=== PATIENT | male | born 1965 | race Caucasian/White ===

== ENCOUNTER 2016-04-17 08:55 | Emergency (ER) | payer OTHER ==
[~2016-04-17] VITALS: Ht 167.6 cm; Wt 84.8 kg
[~2016-04-17 08:55] MED LIST: BACTRIM DS TAB1 EACH PO; DILAUDID2 MG PO; FLEXERIL10 MG PO; INDOMETHACIN50 MG PO; KEFLEX500 M1 PO; MEDROL DOSEPAK1 PAC PO; MOTRIN600 MG PO; PERCOCET 325 MG1 TA2 PO; PREDNISONE10 MG; VALIUM2 MG PO; VICODIN5-300 PO
--- NOTE | 2016-04-17 09:21 | ED HAND/WRIST INJURY COMPLAINT ---
History of Present Illness General Chief Complaint: Hand or Wrist Injury Stated Complaint: FINGER LAC Source: patient Exam Limitations: no limitations Vital Signs & Intake/Output Vital Signs & Intake/Output Vital Signs Date Time Temp Pulse Resp B/P Pulse O2 O2 Flow FiO2 Ox Delivery Rate 04/17 1013 96 04/17 1005 99.0 88 139/74 04/17 0905 98.7 72 20 168/79 97 Room Air Allergies Coded Allergies: NO KNOWN ALLERGIES (04/17/16) Reconcile Medications Amoxicillin 500 MG TABLET 1 TAB PO TID cellulitis Hydrocodone/Acetaminophen (Ballico 5-325 Tablet) 5 MG-325 MG TABLET 1-2 TAB PO Q4-6 PRN PRN pain Sulfamethoxazole/Trimethoprim (Bactrim Ds Tablet) 800 MG-160 MG TABLET 1 TAB PO BID cellulitis Triage Note: TRIAGE: [facility] R/T LAC TO L THUMB S/P CUTTING SAME WITH RAZOR BLADE. REFERRED TO ER FOR ABX TREATMENT. Triage Nurses Notes Reviewed? yes Occurred: 3 DAYS Duration: day(s): (3) Timing: no prior history Injury Environment: home Severity: moderate Severity Numbers: 6 Pain/Injury Location: Left: Hand. Context: laceration Method of Injury: laceration Modifying Factors: Improves With: immobilization. Worsens With: movement. HPI: Patient is a 50-year-old male presenting to the emergency department with chief complaint of worsening swelling, pain and redness around the laceration and he had sutured 3 days ago. Patient reports that he was seen at occupational medicine on Sunday and had a laceration repaired. Since then his nose increased pain and swelling and redness to the area. He was seen again today at occupational medicine and told him to come to the emergency department for evaluation. Denies any fevers or chills. No nausea or vomiting. Pain is worse with movement. He reports that he feels very swollen that he cannot even move it. Denies taking anything at home to help with pain. Denies numbness or tingling. (AIDEE MINOR,BALJIT) Past History Travel History Traveled to [place] past 21 day No Medical History Any Pertinent Medical History? 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 No (BALJIT LOMELI) Review of Systems Review of Systems Constitutional: Reports: no symptoms. Comments Review of systems: See HPI, All other systems negative. Constitutional, no chills fever or weight loss HEENT: No visual changes no sore throat no congestion Cardiovascular: No chest pain Skin, no jaundice Respiratory: No dyspnea cough sputum or hemoptysis GI: No nausea no vomiting : No dysuria No hematuria Muscle skeletal: no back pain, no neck pain, Neurologic: No numbness no confusion Psych: No stress anxiety Immunology: No splenectomy or history of AIDS (BALJIT LOMELI) Physical Exam Physical Exam General Appearance: well developed/nourished, no apparent distress, alert, awake , comfortable Hand Left: swelling Hand Right: normal inspection, normal range of motion Comments: Well-developed well-nourished person in no acute distress HEENT: Pupils equally round and reactive to light and accommodation. Nose is atraumatic. Neck: Supple, no lymphadenopathy, normal range of motion without pain or tenderness Back: Nontender Cardiovascular: Regular rate and rhythms no murmurs rubs or gallops, normal JVP Respiratory: No respiratory distress. Extremity: Radial pulses are 2+ bilaterally. Tender to palpation over the left thumb where the sutures are. Limited range of motion of left thumb secondary to pain and swelling. Capillary refill is intact in upper extremities. Neuro: Alert oriented x3, motor sensory normal Skin: Sutures in place over the laceration on the left thumb. There is surrounding erythema and edema. No purulent discharge. Psych: Mood and affect is normal, memory and judgment is normal. (BALJIT LOMELI) Progress Differential Diagnosis: cellulitis, contusion, dislocation, fracture, sprain, necrotizing fasciitis Plan of Care: Orders Procedure Date/time Status XRY-FINGERS, LEFT 04/17 936 Active Current Medications Sig/Brady Start time Last Medication Dose Stop Time Status Admin Ampicillin Sodium/ 3,000 MG ONCE ONE 04/17 944 AC Sulbactam Sodium 04/17 1014 (Unasyn) Sodium Chloride 100 ML (Normal Saline 0.9%) Diagnostic Imaging: Viewed by Me: Radiology Read. Discussed w/RAD: Radiology Read. Radiology Impression: PATIENT: SAWYER MILLS PRESENT AGE: 50 PATIENT ACCOUNT NO: [id number] : 64 LOCATION: [facility] ORDERING PHYSICIAN: BALJIT MINOR SERVICE DATE: 04/17/16 EXAM TYPE: RAD - XRY-FINGERS, LEFT EXAMINATION: XR FINGER, LEFT CLINICAL INFORMATION: Left thumb pain and swelling status post sutures. Evaluate for subcutaneous tissue emphysema and osteomyelitis. COMPARISON: None TECHNIQUE: Three views of the left thumb were obtained. FINDINGS: Bones have normal density and alignment throughout the visualized wrist and hand. At the thumb interphalangeal joint, there is nonuniform, ejcq-[id number] joint space narrowing and osteophyte formation. No acute fracture or malalignment at the degenerated joint. There appears to be a small area of soft tissue emphysema lateral to the mid shaft of the proximal phalanx of the thumb. There is no radiopaque foreign body in this region. No evidence of phalangeal fracture, cortical erosion or periostitis. There is mild osteoarthrosis at multiple interphalangeal joints. IMPRESSION: 1. Small area of soft tissue emphysema is seen lateral to the proximal phalanx of the thumb. 2. No evidence of osteomyelitis. 3. 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 Comments: 2 sutures removed from laceration as it looks to be too tight. Dressing placed. Splint placed. 1 sutured removed. (AIDEE MINOR,BALJIT) Departure Departure Time of Disposition: 1112 Disposition: HOME OR SELF CARE Condition: Stable Clinical Impression Primary Impression: Cellulitis Referrals: YAMILKA ROSS,CAT BENSON MD,TERESA (PCP/Family) Additional Instructions: Follow-up with occupational medicine as scheduled. Also follow-up with Dr. San the hand specialist. Take antibiotics as prescribed. Keep area clean. Return for worsening symptoms or concerns. Wear splint for support. Departure Forms: Customer Survey General Discharge Information Prescriptions: Current Visit Scripts Amoxicillin 1 TAB PO TID #30 TAB Sulfamethoxazole/Trimethoprim (Bactrim Ds Tablet) 1 TAB PO BID #20 TAB Hydrocodone/Acetaminophen (Ballico 5-325 Tablet) 1-2 TAB PO Q4-6 PRN PRN pain #10 TAB (BALJIT LOMELI) PA/OFFICE EXECUTIVE Co-Sign Statement Statement: ED Attending supervision documentation- [X] I saw and evaluated the patient. I have also reviewed all the pertinent lab results and diagnostic results. I agree with the findings and the plan of care as documented in the PA's/OFFICE EXECUTIVE's documentation. [X] I have reviewed the ED Record and agree with the PA's/OFFICE EXECUTIVE's documentation. [] Additions or exceptions (if any) to the PAs/OFFICE EXECUTIVE's note and plan are summarized below: [] (CHANELLE ROSS,JASON) Procedures Splinting Location: left thumb Manual Alignment Performed: No Hand-Made Type: orthoglass Splint: thumb spica Splint Applied By: splint applied by me Pre-Proc Neuro Vasc Exam: normal Post-Proc Neuro Vasc Exam: normal Progress: Patient tolerated procedure well. (BALJIT LOMELI)
[2016-04-17 10:05] VITALS: BP 139/74
--- NOTE | 2016-04-17 10:11 | RADIOLOGY REPORT ---
EXAMINATION: XR FINGER, LEFT CLINICAL INFORMATION: Left thumb pain and swelling status post sutures. Evaluate for subcutaneous tissue emphysema and osteomyelitis. COMPARISON: None TECHNIQUE: Three views of the left thumb were obtained. FINDINGS: Bones have normal density and alignment throughout the visualized wrist and hand. At the thumb interphalangeal joint, there is nonuniform, [id number]-[id number] joint space narrowing and osteophyte formation. No acute fracture or malalignment at the degenerated joint. There appears to be a small area of soft tissue emphysema lateral to the mid shaft of the proximal phalanx of the thumb. There is no radiopaque foreign body in this region. No evidence of phalangeal fracture, cortical erosion or periostitis. There is mild osteoarthrosis at multiple interphalangeal joints. IMPRESSION: 1. Small area of soft tissue emphysema is seen lateral to the proximal phalanx of the thumb. 2. No evidence of osteomyelitis. 3. 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
[2016-04-17] MEDS ORDERED: BACTRIM DS TAB1 EACH PO (11:26)
[2016-04-17] MEDS ORDERED: VICODIN 5-3001 EACH PO (11:26)
[2016-04-17] MEDS ORDERED: AMOXICILLIN500 M3 PO (11:26)
[2016-04-17] MEDS ORDERED: NORCO 5-325 TA1 EACH PO (11:28)
== END 2016-04-17 12:16 ==
LOC: ERH 08:55
DX: L03.012 Cellulitis of left finger (principal)
CPT/HCPCS: 73140-LT; 96374; 96375; J1885

== ENCOUNTER 2016-08-14 20:11 | Emergency (ER) | payer OTHER ==
[~2016-08-14] VITALS: Ht 162.6 cm; Wt 84.8 kg
[~2016-08-14 20:11] MED LIST changes: +AMOXICILLIN500 M3 PO; +NORCO 5-325 TA1 EACH PO; +VICODIN 5-3001 EACH PO
[2016-08-14 20:53] LABS: ABSOLUTE BASOPHIL COUNT 0.1 /CUMM (0.0-0.2); ABSOLUTE EOSINOPHIL COUNT 0.3 /CUMM (0.0-0.7); ABSOLUTE GRANULOCYTE CT 6.5 /CUMM (1.4-6.5); ABSOLUTE LYMPH COUNT 3.8 /CUMM (1.2-3.4); ABSOLUTE MONOCYTE COUNT 0.7 /CUMM (0.10-0.60); BASOPHIL % 0.5 % (0.0-2.0); EOSINOPHIL % 2.7 % (0-5); HEMATOCRIT 40.2 % (42-52); MEAN CORPUSCULAR HGB 30.7 PG (27.0-31.0); MEAN CORPUSCULAR HGB CONC 33.5 G/DL (33.0-37.0); MEAN CORPUSCULAR VOLUME 91.6 FL (80.0-94.0); MEAN PLATELET VOLUME 8.8 FL (7.4-10.4); PLATELET COUNT 270 /CUMM (130-400); RBC DISTRIBUTION WIDTH 13.5 % (11.5-14.5); RED BLOOD CELL CT 4.39 /CUMM (4.70-6.10); WHITE BLOOD CELL COUNT 11.3 /CUMM (4.8-10.8)
[2016-08-14 21:03] LABS: GRANULOCYTE % 57.4 % (42.2-75.2)
[2016-08-14] MEDS ORDERED: ADVAIR 250-501 EACH INH (21:32)
[2016-08-14] MEDS ORDERED: MELOXICAM15 M1 PO (21:32)
[2016-08-14] MEDS ORDERED: CHANTIX1 MG (21:33)
[2016-08-14] MEDS ORDERED: LYRICA75 M1 PO (21:34)
--- NOTE | 2016-08-14 21:35 | ED GI/GU/ABDOMINAL COMPLAINT ---
History of Present Illness General Chief Complaint: Abdominal Pain/Flank Pain Stated Complaint: LUQ ABD PAIN, RADIATES TO LLE X 2 HRS Source: patient Exam Limitations: no limitations Vital Signs & Intake/Output Vital Signs & Intake/Output Vital Signs Date Time Temp Pulse Resp B/P B/P Pulse O2 O2 Flow FiO2 Mean Ox Delivery Rate 08/146 96.8 76 18 136/76 98 Room Air 08/14 2028 98.1 79 20 121/83 98 Room Air Allergies Coded Allergies: NO KNOWN ALLERGIES (04/17/16) Reconcile Medications Diazepam (Valium) 2 MG TABLET 1 TAB PO BID PRN MUSCLE SPASM Fluticasone/Salmeterol (Advair 250-50 Diskus) 250 MCG-50 MCG/DOSE BLST.W.DEV 1 PUF INH BID RESPIRATORY (Reported) Meloxicam 15 MG TABLET 1 TAB PO DAILY PAIN/INFLAMMATION (Reported) Oxycodone HCl/Acetaminophen (Percocet 5-325 MG Tablet) 5 MG-325 MG TABLET 1 TAB PO BID PRN PAIN DO NOT OPERATE MOTOR VEHICLES WITH THIS MEDICATION Pregabalin (Lyrica) 75 MG CAPSULE 1 CAP PO BID PAIN (Reported) Varenicline Tartrate (Chantix) (Unknown Strength) TABLET (Unknown Dose) UNKNOWN (Reported) Triage Note: PT TO ED C/O SHARP LLQ PAIN THAT SHOOTS DOWN FRONT OF L THIGH FOR 2 1/2 HRS. PAIN WORSE WITH MOVEMENT. PAIN STARTED WHEN HE WAS PICKING UP STICKS IN THE YARD. DENIES HEAVY LIFTING. DENIES ANY BLULDGES IN L GROIN. DENIES UTI S/S. 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 Triage Nurses Notes Reviewed? yes Duration: intermittent Timing: multiple episodes today Severity Numbers: 8 Location: left lower quadrant Activities at Onset: physical activity HPI: Patient is a 50-year-old male who was in his normal state of health today and this evening approximately 3 hours prior to arrival patient was bending over picking up sticks [place] where he stood up and noticed acute onset of sharp stabbing severe left groin and pelvic pain. Patient denies picking up any heavy objects patient states that ambulation and lifting his left leg makes worse. Patient denies any nausea vomiting testicular pain or swelling or back pain. Patient's last bowel movement was today no blood no melena noted. Past History Travel History Traveled to [place] past 21 day No Medical History Any Pertinent Medical History? 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 No Review of Systems Review of Systems Constitutional: Reports: no symptoms. EENTM: Reports: no symptoms. Respiratory: Reports: no symptoms. Cardiovascular: Reports: no symptoms. GI: Reports: see HPI, abdominal pain. Genitourinary: Reports: no symptoms. Musculoskeletal: Reports: no symptoms. Skin: Reports: no symptoms. Neurological/Psychological: Reports: no symptoms. Hematologic/Endocrine: Reports: no symptoms. Immunologic/Allergic: Reports: no symptoms. All Other Systems: Reviewed and Negative Physical Exam Physical Exam General Appearance: mild distress Gastrointestinal: normal bowel sounds, soft, non-tender, no organomegaly Male Genitals: normal genitalia Comments: HEENT: Normal EENT exam, Neck: Supple, no lymphadenopathy, normal range of motion without pain or tenderness Back: Nontender, no CVA tenderness. Cardiovascular: Regular rate and rhythms no murmurs rubs or gallops, normal JVP Respiratory: Chest nontender. No respiratory distress.breath sounds clear to auscultation bilaterally Abdomen: Soft, nontender nondistended, no appreciable organomegaly. Normal bowel sounds. No ascites Extremity: No edema, no calf tenderness to palpation, normal and equal pulses. Left hip noted groin point tenderness pain elicited with hip flexion and hip adduction with 5 out of 5 strength No hernia upon palpation Normal inspection - Normal inspection, nontender testicular region no scrotal swelling no scrotal mass no testicular pain Neuro: Alert oriented x3, motor sensory normal, Skin: No appreciable rash on exposed skin, skin is warm and dry. Psych: Mood and affect is normal, memory and judgment is normal. Core Measures ACS in differential dx? No Severe Sepsis Present: No Septic Shock Present: No Progress Differential Diagnosis: AAA, AMI, appendicitis, biliary colic, bowel obstruction , colon cancer, cholecystitis, diverticulitis, epididymitis, esophageal varices, gastritis, hepatitis, hernia, hemorrhoids, ischemic bowel, inflamm bowel dis, Jie-Noah tear, orchitis, pancreatitis, prostatitis, peptic ulcer, PUD/GERD, perforated viscous, pyelonephritis, SBO, STD, testicular torsion, ureterolithiasis, urinary retention, urethritis, UTI/pyelo Plan of Care: Orders Procedure Date/time Status Durable Medical Equipment 08/14 2252 Active COMPREHENSIVE METABOLIC PANEL 08/14 2038 Complete CBC WITHOUT DIFFERENTIAL 08/14 2038 Complete Current Medications Sig/Brady Start time Last Medication Dose Stop Time Status Admin Oxycodone/ 1 TAB ONCE ONE 08/14 2299 CAN Acetaminophen 08/14 230 (Percocet) Laboratory Tests 08/14/162034: Anion Gap 10, Estimated GFR > 60, BUN/Creatinine Ratio 17.5, Glucose 112 H, Calcium 9.2, Total Bilirubin 0.3, AST 21, ALT 33, Alkaline Phosphatase 57, Total Protein 6.6, Albumin 4.0, Globulin 2.6, Albumin/Globulin Ratio 1.5, CBC w Diff NO MAN DIFF REQ, RBC 4.39 L, MCV 91.6, MCH 30.7, RDW 13.5, MPV 8.8, Gran % 57.4 , Lymphocytes % 33.2, Monocytes % 6.2, Eosinophils % 2.7, Basophils % 0.5, Absolute Granulocytes 6.5, Absolute Lymphocytes 3.8 H, Absolute Monocytes 0.7 H, Absolute Eosinophils 0.3, Absolute Basophils 0.1, PUBS MCHC 33.5 Patient currently is resting comfortably upon rest. Patient has reproducible pain upon left hip movements which due to history of present illness and exam findings or suspicion of groin strain or left pelvic abdominal wall strain. No overt findings on physical exam of hernia. Patient had unremarkable blood work and unremarkable CT scan. Patient will be treated for concerns of muscular strain. Patient also had significant improvement of his symptoms with medications (MANOLO WILLIAM) Diagnostic Imaging: Viewed by Me: CT Scan. Radiology Impression: no acute abnormality Initial ED EKG: none Comments: PATIENT: SAWYER MILLS PRESENT AGE: 50 PATIENT ACCOUNT NO: [id number] : 64 LOCATION: [facility] ORDERING PHYSICIAN: MANOLO MINOR SERVICE DATE: 08/14/16 EXAM TYPE: CAT - CT ABD & PELVIS W IV CONTRAST EXAMINATION: CT ABDOMEN AND PELVIS WITH CONTRAST CLINICAL INFORMATION: Abdominal pain COMPARISON: None TECHNIQUE: Multidetector volumetric imaging was performed of the abdomen and pelvis after the IV administration of 95 mL of Optiray 320 intravenous contrast. Sagittal and coronal reformatted images were obtained on the technologist's workstation. DLP: 315.6 mGy-cm FINDINGS: LUNG BASES: The visualized lung bases are unremarkable. LIVER, GALLBLADDER, AND BILIARY TREE: The liver is normal in size, shape, and attenuation. No focal hepatic lesion or biliary ductal dilatation is present. The gallbladder is unremarkable with no evidence of radiopaque gallstones, gallbladder wall thickening, or obvious pericholecystic inflammatory changes. PANCREAS: Unremarkable. SPLEEN: Unremarkable. ADRENAL GLANDS: Unremarkable. KIDNEYS AND URETERS: The kidneys are normal in size, shape, and attenuation. No hydronephrosis, hydroureter, or calculi seen. No perinephric stranding. BLADDER: Unremarkable. GASTROINTESTINAL TRACT: The small and large bowel are unremarkable. The appendix is unremarkable. ABDOMINAL WALL: No significant hernia is appreciated. LYMPH NODES: No bulky lymphadenopathy. There are small lymph nodes in the groin bilaterally. Small coarse calcifications in the inguinal canal bilaterally. VASCULAR: Atherosclerotic vascular wall calcifications of the distal aorta and iliac vessels without aneurysm. PELVIC VISCERA: Unremarkable. OSSEOUS STRUCTURES: Vacuum disc phenomena at L5-S1. Small degenerative lipping at the anterior endplates of lumbar vertebrae. Mild facet joint arthrosis. IMPRESSION: No acute abnormality CT scan abdomen pelvis DICTATED BY: LELO LIU MD DATE/TIME DICTATED:08/14/162228 TAX EXAMINING TECHNICIAN:SERENITY DATE/TIME TRANSCRIBED:08/14/162228 Departure Departure Disposition: HOME OR SELF CARE Condition: Stable Clinical Impression Primary Impression: Left groin pain Referrals: TERESA BENSON MD (PCP/Family) Additional Instructions: As discussed begin icing the area directly 20 minutes every 2 hours. Begin over -the-counter ibuprofen for pain and inflammation and begin the prescription of Percocet for breakthrough pain relief. If no better in 3 days follow-up with your primary care doctor. If symptoms worsen return to emergency room. Prescription is waiting at [facility]. Departure Forms: Customer Survey General Discharge Information Prescriptions: Current Visit Scripts Oxycodone HCl/Acetaminophen (Percocet 5-325 MG Tablet) 1 TAB PO BID PRN PAIN #10 TAB DO NOT OPERATE MOTOR VEHICLES WITH THIS MEDICATION Diazepam (Valium) 1 TAB PO BID PRN MUSCLE SPASM #8 TAB #8 TAB
--- NOTE | 2016-08-14 22:37 | CT SCAN REPORT ---
EXAMINATION: CT ABDOMEN AND PELVIS WITH CONTRAST CLINICAL INFORMATION: Abdominal pain COMPARISON: None TECHNIQUE: Multidetector volumetric imaging was performed of the abdomen and pelvis after the IV administration of 95 mL of Optiray 320 intravenous contrast. Sagittal and coronal reformatted images were obtained on the technologist's workstation. DLP: 315.6 mGy-cm FINDINGS: LUNG BASES: The visualized lung bases are unremarkable. LIVER, GALLBLADDER, AND BILIARY TREE: The liver is normal in size, shape, and attenuation. No focal hepatic lesion or biliary ductal dilatation is present. The gallbladder is unremarkable with no evidence of radiopaque gallstones, gallbladder wall thickening, or obvious pericholecystic inflammatory changes. PANCREAS: Unremarkable. SPLEEN: Unremarkable. ADRENAL GLANDS: Unremarkable. KIDNEYS AND URETERS: The kidneys are normal in size, shape, and attenuation. No hydronephrosis, hydroureter, or calculi seen. No perinephric stranding. BLADDER: Unremarkable. GASTROINTESTINAL TRACT: The small and large bowel are unremarkable. The appendix is unremarkable. ABDOMINAL WALL: No significant hernia is appreciated. LYMPH NODES: No bulky lymphadenopathy. There are small lymph nodes in the groin bilaterally. Small coarse calcifications in the inguinal canal bilaterally. VASCULAR: Atherosclerotic vascular wall calcifications of the distal aorta and iliac vessels without aneurysm. PELVIC VISCERA: Unremarkable. OSSEOUS STRUCTURES: Vacuum disc phenomena at L5-S1. Small degenerative lipping at the anterior endplates of lumbar vertebrae. Mild facet joint arthrosis. IMPRESSION: No acute abnormality CT scan abdomen pelvis
[2016-08-14] MEDS ORDERED: PERCOCET 5-3251 EACH PO (22:49)
[2016-08-14] MEDS ORDERED: VALIUM2 M1 PO (23:19)
[2016-08-14 23:36] VITALS: BP 136/76
== END 2016-08-15 ==
LOC: ERH 20:11
PROVIDERS: Emergency Medicine
DX: R10.32 Left lower quadrant pain (principal)
CPT/HCPCS: 74177; 96374; 96375; 96376; J3360